=== PATIENT | male | born 1995 | race Caucasian/White ===

== ENCOUNTER 2016-07-06 10:39 | Emergency (ER) | payer BC, OTHER ==
[~2016-07-06] VITALS: Ht 175.3 cm; Wt 100.0 kg
[~2016-07-06 10:39] MED LIST: Z.0.NO CURRENT MEDS
[2016-07-06 10:40] VITALS: BP 140/78; PULSE 78; RESP 16; TEMP 97.8; O2SAT 96
--- NOTE | 2016-07-06 11:07 | PD ---
HPI Chief Complaint: Injury Time Seen by Provider: 11:06 Travel History International Travel<30 days: No Contact w/Intl Traveler<30days: No Traveled to known affect area: No History of Present Illness HPI 20-year-old male presents to the emergency department for evaluation of left knee injury that occurred yesterday while playing football. Patient states he was running and planted his left foot to stop causing his left knee to hyperextend. States that he has been unable to fully extend the knee since yesterday due to pain. States he is able to ambulate and weight-bear but that it does aggravate his pain. He denies any prior injury or trauma to his knee. States that he applied ice and elevated the knee. States that most of his pain is in the posterior aspect of his left knee. Denies any numbness or tingling, weakness. No other complaints. PFSH Past Medical History Asthma: Yes Diminished Hearing: No Genitourinary: Yes (UNDESCENDED TESTICLES) Social History Alcohol Use: No Tobacco Use: No Allergies-Medications (Allergen,Severity, Reaction): Coded Allergies: Albuterol (Verified Allergy, Mild, HALLUCINATIONS, 01/29/06) Reported Meds & Prescriptions Reported Meds & Active Scripts Active Naproxen 500 Mg Tab 500 Mg PO BID 7 Days Reported No Current Meds (Miscellaneous Medication) Misc Review of Systems Except as stated in HPI: all other systems reviewed are Neg Physical Exam Narrative GENERAL: Well-nourished and well-developed pleasant male patient in no acute distress who is nontoxic appearing. SKIN: Warm and dry. HEAD: Normocephalic and atraumatic. EYES: No injection, drainage, or hyphema noted. PERRLA. EOMI. ENT: No nasal drainage noted. Oropharynx is clear. NECK: Supple and the trachea is midline. CARDIOVASCULAR: Regular rate and rhythm. RESPIRATORY: Breath sounds are equal bilaterally with no accessory muscle use, wheezing, rhonchi, or crackles. GASTROINTESTINAL: Abdomen is soft, non-tender, and nondistended. MUSCULOSKELETAL: No tenderness to palpation of left knee, no swelling. Pain elicited with full flexion of the left knee and full extension. AP drawer sign is negative. Negative Melani's test. The joint is stable. No obvious deformities, swelling, cyanosis, or ecchymosis is present throughout the upper and lower extremities. Patient has full range of motion without any signs of neurovascular compromise. NEUROLOGICAL: Awake, alert, and oriented. Normal speech and gait. Cranial nerves are grossly intact. Data Data Last Documented VS Vital Signs Date Time Temp Pulse Resp B/P Pulse Ox O2 Delivery O2 Flow Rate FiO2 07/06/16 10:40 97.8 78 16 140/78 96 Room Air Orders Splint Or Brace Apply/Monitor (07/06/16 11:08) Crutches (07/06/16 11:08) MDM Medical Decision Making Medical Screen Exam Complete: Yes Emergency Medical Condition: Yes Differential Diagnosis Knee sprain versus meniscus injury versus ligamentous tear Narrative Course 20-year-old male presents to the emergency department for evaluation of left knee injury after hyperextending it during football yesterday. Patient is afebrile, vital signs are stable. The knee is not swollen and he is able to fully flex and extend. No bony abnormalities or tenderness. I don't feel there is any indication for x-ray imaging at this time. I suspect the patient has a ligamentous injury, likely a PCL strain. He's placed in an Kenneth wrap and given crutches for ambulation. Discussed supportive care. Advised to follow- up with an orthopedist if his symptoms persist. Patient verbalizes understanding and agreement with treatment plan. Diagnosis Primary Impression: Left knee sprain Qualified Code: S83.92XA - Sprain of left knee, unspecified ligament, initial encounter Referrals: Orthopedist Patient Instructions: General Instructions, Knee Sprain (ED) Departure Forms: Tests/Procedures Additional Instructions: Kenneth wrap. Elevate left knee. Use crutches for ambulation. Apply ice for 20 minutes on, 20 minutes off. Take medication as prescribed with food and a full glass of water. Follow-up with an orthopedist if symptoms persist. Return to the ED for any acute worsening of symptoms. Med/Other Pt SpecificInfo: Prescription(s) given Scripts Naproxen 500 Mg [id number] Mg PO BID 7 Days Ref 0 Prov:Devante Stark MD 07/06/16 Disposition: 01 DISCHARGE HOME Condition: Stable Divya Bill Jul 06, 2016 11:07
[2016-07-06] MEDS ORDERED: NAPR500T PO (11:09)
== END 2016-07-06 11:28 | disposition home or self-care (01) ==
LOC: NEPB 10:39
DX: S83.92XA Sprain of unspecified site of left knee, initial encounter (principal); X50.0XXA Overexertion from strenuous movement or load, initial encounter; Y93.61 Activity, american tackle football
CPT/HCPCS: 99283; E0113